=== PATIENT | male | born 1945 | race Caucasian/White ===

== ENCOUNTER 2016-05-30 19:38 | Emergency (ER) | payer MEDICARE, BC ==
--- NOTE | ~2016-05-30 | CR142 ---
[facility]. [facility] A Service of [facility] & [facility] RADIOLOGY TEXT RESULTS PATIENT: BERNARD CLAROS LOCATION: SED : 47 UNIT #: [id number] AGE: [address]: David Stephenson MD SEX: M ORDER DR: [id number] [place] [id number] E MR#: [id number] Acc #: [id number] NAME: BERNARD CLAROS : 1945 SEX: M STUDY DATE/TIME: 05/30/2016 20:28 UNIT: SED ROOM: STUDY DESCRIPTION: CR Hand Min 3 Views Rt Attending Physician: David Stephenson M.D. Ordering Physician: David Stephenson M.D. Primary Care Physician: Saturnino Schaefer M.D. MEDICAL IMAGING REPORT This report is preliminary unless electronic signature is present. EXAM Right hand pain and swelling. Prior surgical fusion. FINDINGS 3 views of the right hand compared to 12/31/2008. FINDINGS There is no acute fracture or dislocation. There has been surgical resection of the scaphoid. 2 screws are noted in the mid and distal carpal rows indicating prior fusion. There is generalized soft tissue swelling over the hand. No unexpected foreign body. IMPRESSION 1. Postsurgical changes to the right wrist. 2. Extensive soft tissue swelling of the wrist and hand. Dictated by... Sarwat Redman M.D. THIS IS AN ELECTRONICALLY VERIFIED REPORT Sarwat Redman M.D. at 05/31/2016 2:31 PM Roro TD: 05/31/2016 00:52 JOB #: [id number] MEDICAL IMAGING REPORT Page 1 of 1
[~2016-05-30 19:38] MED LIST: ACYCLOVIR400 MG PO; ADVAIR 2501 DISK W/D PO; ALBUTEROL17 GM INH; ALLOPURINOL300 MG PO; ALPRAZOLAM PO; AMOXICILLI250 MG/5 M; ASPIRIN EC81 M1 PO; ASPIRIN PO; ASPIRIN81 M2 PO; ASPIRIN81 MG PO; AUGMENTIN875 M1 PO; BENZONATATE PO; BENZONATATE200 M1 PO; BLOOD PRESSURE MED PO; BP PILL; CARAFATE1 G PO; CARDURA2 MG PO; CATAPRES-TTS-10.1 M1 EXT; CELEBREX PO; CENTRUM SILVER PO; CHONDROITIN SU250 MG PO; CIPRO PO; CLARINEX5 MG PO; CLEOCIN HCL150 MG PO; COLACE PO; COLCRYS0.6 MG PO; COUMADIN5 MG PO; DYAZIDE 37.5/251 CAP PO; ELIQUIS2.5 MG PO; FISH OIL 1,2001 CAP PO; FLAGYL PO; GABAPENTIN300 M2 PO; GABAPENTIN300 MG PO; GLUCOSAMINE 1,51 CA1 PO; GLUCOSAMINE H1500 MG PO; GLUCOSAMINE500 M1 PO; HYDRALAZINE HCL50 MG PO; HYDROCHLOROTHIA25 MG PO; HYDROCODON-ACE1 EAC4 PO; HYDROCODON-ACE1 EAC5 PO; INDOCIN25 MG/5 ML PO; LASIX20 MG PO; LEVAQUIN PO; LEVOFLOXACIN500 MG PO; LIPITOR20 MG PO; LISINOPRIL-HCTZ1 T15 PO; LORTAB 10-5001 EACH PO; LORTAB 10/500 T1 TAB PO; LORTAB 101 TAB 10/5 PO; LORTAB PO; LOSARTAN POTASS50 MG PO; LOVENOX80 MG/0.8 INJ; LUNESTA PO; METOPROLOL SUCC50 MG PO; METOPROLOL TAR25 MG PO; METOPROLOL TART25 GM PO; MOBIC PO; NAPROSYN500 MG PO; NORVASC10 MG PO; PRILOSEC PO; PRINIVIL20 M1 PO; PROAIR RESPICL90 MCG; PROTONIX PO; SINGULAIR PO; SOMA PO; TEMAZEPAM PO; TOPROL XL PO; TRIAMTERENE-HCT1 TA8 PO; VITAMIN D 22000 UNIT PO; VITAMIN D250000 UNIT PO; XANAX1 MG PO; ZITHROMAX PO; ZYLOPRIM PO; [UNRECOGNIZED DRUG - OTHER] PO; [UNRECOGNIZED DRUG - REMARK] PO
[2016-05-30 19:57] LABS: BASOPHIL# 0.1 X10e3 (0-0.3); DIFF IND NO; EOSINOPHIL# 0.4 X10e3 (0-0.7); EOSINOPHIL% 4.5 % (0.0-7.0); HEMATOCRIT 41.4 % (38.0-50.0); HEMOGLOBIN 13.7 gm/dL (13.0-16.0); LYMPHOCYTE# 1.5 X10e3 (1.0-3.5); LYMPHOCYTE% 18.5 % (17.0-45.0); MEAN CELL VOLUME 87.2 FL (83-96); MEAN CORPUSCULAR HEMOGLOBIN 28.9 PG (28-34); MEAN CORPUSCULAR HGB CONC 33.1 g/dL (30-36); MEAN PLATELET VOLUME 7.5 FL (6.5-11.5); MONOCYTE# 0.7 X10e3 (0-1.0); MONOCYTE% 8.2 % (3.0-12.0); NEUTROPHIL# 5.4 X10e3 (1.5-7.1); NEUTROPHIL% 67.8 % (40-75); PLATELET COUNT 229 X10e3 (140-420); RED BLOOD COUNT 4.75 X10e (3.90-5.60); RED CELL DISTRIBUTION WIDTH 15.7 % (11.0-15.5)
[2016-05-30 20:15] LABS: BUN/CREATININE RATIO 15.45; CALCIUM SERUM 8.5 mg/dL (8.4-10.2); CREATININE SERUM 2.2 mg/dL (0.6-1.4); GLOM FILT RATE Estimated 29.5 mL/min (>60); POTASSIUM 3.8 mmol/L (3.5-5.1)
== END 2016-05-30 23:07 ==
LOC: SED 19:38
PROVIDERS: Emergency Medicine
DX: L03.113 Cellulitis of right upper limb (principal); I10 Essential (primary) hypertension; M10.9 Gout, unspecified; F17.200 Nicotine dependence, unspecified, uncomplicated; Z98.890 Other specified postprocedural states; Z79.899 Other long term (current) drug therapy
CPT/HCPCS: 36415; 73130; 80048; 85025; 86140; 87040; 87077; 87186; 96365; 96375; 96376; 99284; 99285; J1170; J3370